=== PATIENT | male | born 1970 | race Two or more races ===

== ENCOUNTER 2025-02-23 11:18 | Emergency (ER) | payer MEDICAID, SELFPAY ==
[2025-02-23 11:41] VITALS: BP 144/77; PULSE 75; RESP 16; TEMP 36.9; O2SAT 97; BMI 26.4
--- NOTE | 2025-02-23 11:44 | EKG_ITS ---
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
--- NOTE | 2025-02-23 11:44 | XR_ITS ---
EXAMINATION: PA chest single view TECHNIQUE: Upright PA chest single view Date and time: February 23, 2025, 12:11 p.m. INDICATIONS:*Chest pain today. FINDINGS: Normal heart size. Lungs are clear. The osseous structures are intact. IMPRESSION: No active disease.
--- NOTE | 2025-02-23 11:45 | EDNOTE_ITS ---
<Statement entered by Aicha Lester MD - 02/24/25 06:48> As co-signing physician, I was present and available for consult prn. I concur with the plan and care as documented by the midlevel provider. ED General RME/HPI General Chief complaint: General Adult/Misc Complain Stated complaint: PAIN IN L) RIBS W/ BREATHING Time Seen by Provider: 02/23/25 11:44 Arrival date/time: 02/23/25 11:18 CC: Chest pain HPI left anterior chest pain worsening with deep inhalation onset 24 hours ago currently at 3-4 out of 10 scale prior at onset it was a 7-8. No prior history of similar events patient is noncompliant with all medications for over a year. Denies fever chills or other family members ill with similar symptoms not reproducible with palpation. Related Data Previous Rx's ?Medication ?Instructions ?Recorded metformin 500 mg tablet 500 mg PO BID #60 tabs 05/17 dicyclomine 10 mg capsule 10 mg PO BID #30 caps famotidine 20 mg tablet 20 mg PO QDAY #30 tabs 09/03 dicyclomine 20 mg tablet 20 mg PO BID #20 tabs polyethylene glycol 3350 17 4 g PO QDAY #238 grams gram/dose oral powder (Miralax) metformin 500 mg tablet 500 mg PO BID #30 tabs 02/23 Allergies Allergy/AdvReac Type Severity Reaction Status Date / Time No Known Allergies Allergy Verified 02/23/25 11:23 Review of Systems Review of Systems Narrative Review of Systems: GEN: No fever, no chills, no weight loss EYES: No discharge, no visual changes, no pain HEENT: No ear pain, no congestion, no sore throat PULM: No shortness of breath, no cough, no congestion CV: + chest pain, no dyspnea on exertion, no palpitations GI: No nausea, no vomiting, no diarrhea, no pain, no constipation : No frequency, no urgency, no dysuria MUSC/SKEL: No joint pain, no back pain SKIN: No rash PSYCH: No hallucinations, no depression HEME/LYMPH: No easy bleeding or bruising tendencies NEURO: No weakness, no headache Past Medical History Past Medical History CARDIAC: Negative Cardiac Disorders or Congestive Heart Failure RESPIRATORY: Negative Chronic Obstructive Pulmonary Disease (COPD) or Asthma GENITOURINARY: Negative Renal Disease ENDOCRINE: Positive Endocrine Disorders and Diabetes Mellitus Type 2; Negative Diabetes Mellitus Type 1 HEMATOLOGIC: Negative Sickle Cell Disease Social History SMOKING STATUS: Never smoker ED Exam Narrative Physical exam: [General: Not in any acute distress Head normocephalic HEENT: Eyes pupils are PERRLA EOMs are intact mouth pink moist membranes uvula is midline swallow symmetrical phonation is normal. All of the subsystems HEENT within acceptable limits Neck is supple nontender Chest equal chest rise nontender to palpation note: Patient's chest pain is not reproducible with palpation. Respiratory: Clear to auscultation no wheezes crackles or rubs CV: Rate rhythm is regular no murmurs rubs or clicks Abdomen is soft nontender no masses positive bowel sounds all 4 quadrants Back: No CVA tenderness no spinous process tenderness from cervical spine thoracic and lumbar spine Skin: Intact no petechiae rash induration ulceration or crepitus Extremities: Moving all extremity against resistance cap refill less than 2 seconds neurosensory intact Neuro: Awake alert oriented x3 Glascow coma 15 no focal deficits] Course Course Course Narrative: There is been no worsening of chest pain and complete workup is unremarkable for any acute finding requires emergent or immediate intervention from a cardiac standpoint however the patient's blood glucose at 405 the patient is not in DKA but clearly is noncompliant on his medications for diabetes. Will give the patient 5 units of insulin subcu and restart him on his metformin. Patient advised to have prompt follow-up with his PCP. Patient is agreement with this plan Quality Measures none Orders Category Date Time Status EKG (ED ONLY) *Do not use* NOW Care 02/23/25 11:44 Completed EKG (ED Only) Stat Exams 02/23/25 11:44 Draft XR chest 1V Stat Exams 02/23/25 11:44 Completed B-Type Natriuretic Peptide Stat Lab 02/23/25 12:07 Completed CBC Stat Lab 02/23/25 12:07 Completed Comprehensive Metabolic Panel Stat Lab 02/23/25 12:07 Completed Drug Screen,Urine Stat Lab 02/23/25 12:10 Completed LDH (Lactate Dehydrogenase) Stat Lab 02/23/25 12:07 Completed Magnesium Stat Lab 02/23/25 12:07 Completed Partial Thromboplastin Time Stat Lab 02/23/25 12:07 Completed Prothrombin Time with INR Stat Lab 02/23/25 12:07 Completed Troponin I Stat Lab 02/23/25 12:07 Completed Urinalysis, C/S if Indicated Stat Lab 02/23/25 12:10 Completed Urine Culture Stat Lab 02/23/25 12:10 Received Insulin Regular Med 02/23/25 14:17 Discontinued 5 unit SC X1 ONE Vital Signs Vital signs: Vital Signs Temperature 98.5 F 02/23/25 11:41 Pulse Rate 75 02/23/25 11:41 Respiratory Rate 16 02/23/25 11:41 Blood Pressure 144/77 H 02/23/25 11:41 Pulse Oximetry (%) 97 02/23/25 11:41 Oxygen Delivery Method Room Air 02/23/25 11:41 Discharge Plan Plan Patient Disposition: HOME (Self Care) Patient condition on transfer: Stable Prescriptions/Referrals Prescriptions/Med Rec: New metformin 500 mg tablet 500 mg PO BID Qty: 30 1RF No Action metformin 500 mg tablet 500 mg PO BID Qty: 60 0RF famotidine 20 mg tablet 20 mg PO QDAY Qty: 30 0RF dicyclomine 10 mg capsule 10 mg PO BID Qty: 30 0RF polyethylene glycol 3350 [Miralax] 17 gram/dose powder 4 g PO QDAY Qty: 238 0RF dicyclomine 20 mg tablet 20 mg PO BID Qty: 20 0RF Referrals: Refugio Do MD [Primary Care Provider, Family Practice] - In 1 week Problem List Clinical Impression: Chest pain, Diabetes, Hx of medication noncompliance Patient/Caregiver Discharge Instructions Other Activity Instructions:: Take your medications as prescribed follow-up with your primary care doctor make sure you stay on medication for the diabetes. Education Materials: ED Chest Pain, Uncertain Cause, ED Diet: Diabetes Print Language: Palauan Stand Alone Forms: [place] Award Info., Work/School Release, Patient Portal Info Letter DAYNA/DIPESH Supervising Physician PA/SPECIAL EDUCATION TEACHER Supervising Physician: Jose C Baker ENP [facility] Clinical Information Provided by: patient Medical Records reviewed [facility] Meds/Rx considered, not ordered None Labs/Rad/Tests considered, not ordered None Chronic Illness/Social Conditions Explain: Diabetes hypertension medication noncompliance Labs Labs: interpreted by me Imaging Imaging interpretation: interpreted by me Medication Administration(s) none Medication Administration History Discontinued Medications Insulin Human Regular (Insulin Hum Regular 1 Unit/0.01 Ml (Per Unit)) 5 unit SC X1 ONE Stop: 02/23/25 14:18 Last Admin: 02/23/25 14:26 Dose: 5 unit Documented By: ZANA Co-signed By: BRYAN
[2025-02-23 12:15] LABS: Basophils # (Auto) 0.0 Thou/mm3 (0.0-0.2); Basophils % (Auto) 1 % (0-2.5); Eosinophils # (Auto) 0.1 Thou/mm3 (0.0-0.5); Eosinophils % (Auto) 2 % (0-10); Hematocrit 44.3 % (41.0-53.0); Hemoglobin 15.6 g/dL (13.5-16.0); Immature Granulocytes Auto 0.01 Thou/mm3 (0.00-0.00); Lymphocytes # (Auto) 1.5 Thou/mm3 (1.0-4.8); Lymphocytes % (Auto) 25 % (10-50); Mean Corpuscular HGB Conc 35.2 g/dl (31.0-37.0); Mean Corpuscular Hemoglobin 28.0 pg (25.0-35.0); Mean Corpuscular Volume 79 fL (80-100); Monocytes # (Auto) 0.5 Thou/mm3 (0.0-0.8); Monocytes % (Auto) 8 % (0-12); Neutrophils # (Auto) 3.9 Thou/mm3 (1.8-7.7); Neutrophils % (Auto) 64 % (37-80); Nucleated Red Blood Cell # 0.00 Thou/mm3 (0.00-0.00); Nucleated Red Blood Cell % 0 /100 WBC (0); Platelet Count 283 Thou/mm3 (140-440); RDW Standard Deviation 35.8 fL (35.1-43.9); Red Blood Count 5.58 Miln/mm3 (4.50-5.90); White Blood Count 6.0 Thou/mm3 (3.8-10.6)
[2025-02-23 12:20] LABS: Collection Type, Urine Clean Catch
[2025-02-23 12:29] LABS: Bacteria,Urine 1+; Bilirubin,Urine Negative (Negative); Blood,Urine Negative (Negative); Clarity,Urine Clear (Clear/Hazy); Color,Urine Lt-Yellow (Lt Yel-Yel); Glucose, Urine 4+ (Negative); Ketones,Urine Negative (Negative); Leukocyte Esterase,Urine Positive (Negative); Nitrite,Urine Negative (Negative); PH,Urine 6.0 (5.0-7.0); Protein,Urine Negative (Neg - Trace); RBC,Urine 4 /hpf (0-3); Specific Gravity,Urine 1.045 (1.001-1.035); Squamous Epithelial Cell,Urine < 1 /hpf (0-5); Urobilinogen,Urine Negative mg/dL (0.0-1.0); WBC,Urine 7 /hpf (0-5)
[2025-02-23 12:33] LABS: INR 1.0 (0.9-1.3); Partial Thromboplastin Time 25.9 Seconds (22.0-36.0); Prothrombin Time 10.3 Seconds (9.0-12.2)
[2025-02-23 12:36] LABS: Amphetamine/Methamp Scrn,U Negative (Negative); Barbiturate Screen,Urine Negative (Negative); Benzodiazepines Screen,Urine Negative (Negative); Benzoylecgonine Screen, Ur Negative (Negative); Fentanyl Screen,Urine Negative (Negative); Opiate Screen,Urine Negative (Negative); THC Screen,Urine Negative (Negative)
[2025-02-23 12:38] LABS: B-Type Natriuretic Peptide 25 pg/mL (0-100)
[2025-02-23 12:41] LABS: Culture Indicated,Urine Yes
[2025-02-23 12:43] LABS: Alanine Aminotransferase 24 U/L (10-49); Albumin, Serum 4.2 gm/dL (3.5-5.0); Albumin/Globulin Ratio 1.6 (1.2-2.2); Alkaline Phosphatase 111 U/L (46-116); Anion Gap 8 (7-16); Aspartate Amino Transferase 16 U/L (0-34); BUN/Creatinine Ratio 14 Ratio (12-20); Bilirubin,Total 1.0 mg/dL (0.3-1.2); Blood Urea Nitrogen 13 mg/dL (9-23); Calcium 9.1 mg/dL (8.3-10.6); Calcium (Corrected) 9.1 mg/dL (8.5-10.1); Carbon Dioxide 29.2 mMol/L (20.0-31.0); Chloride 99 mMol/L (98-107); Creatinine (Component) 0.9 mg/dL (0.6-1.3); Estimated Creatinine Clearance 76.7 mL/min (>60); Globulin 2.6 gm/dL (2.3-3.5); LDH (Lactate Dehydrogenase) 179 U/L (120-246); Magnesium 2.2 mg/dL (1.6-2.6); Osmolality,Calculated 289 (275-295); Potassium 3.8 mMol/L (3.4-5.1); Sodium 136 mMol/L (136-145); Total Protein 6.8 gm/dL (5.7-8.2); Troponin I < 0.002 ng/mL (0.0-0.045); eGFR > 60 See Note
[2025-02-23 12:54] LABS: Glucose 403 mg/dL (74-106)
[2025-02-23] MEDS: INSULIN HUM REGULAR 1 UNIT/0.01 ML (PER UNIT) 5 UNIT SC (14:26)
[2025-02-23 14:35] VITALS: BP 136/85; PULSE 68; RESP 19; TEMP 36.8; O2SAT 98
== END 2025-02-23 14:36 | disposition home or self-care (01) ==
PROVIDERS: Registered Nurse General Practice; Emergency Provider Emergency Medicine; PCP Family Medicine
DX: R07.89 Other chest pain (principal); E11.9 Type 2 diabetes mellitus without complications; Z91.148 Patient's other noncompliance with medication regimen for other reason; I44.4 Left anterior fascicular block; Z79.84 Long term (current) use of oral hypoglycemic drugs
CPT/HCPCS: 36415; 71045; 80053; 80307; 81001; 83615; 83735; 83880; 84484; 85025; 85610; 85730; 87086; 93005; 99284; J1815